=== PATIENT | female | born 2000 ===

== ENCOUNTER 2018-01-16 23:34 | Emergency (ER) | payer MEDICAID ==
[2018-01-16 23:45] VITALS: O2SAT 99
--- NOTE | 2018-01-17 00:59 | ED PDOC ---
HPI: Female Pain Time Seen by Provider: 01/16/18 23:55 Chief Complaint (Nursing): Female Genitourinary Chief Complaint (Provider): Vaginal bleeding History Per: Patient History/Exam Limitations: no limitations Current Symptoms Are (Timing): Still Present Additional History Per: Patient Additional Complaint(s): 17yo female, and currently approximately 17 weeks , states late last week she had an episode of vaginal bleeding. Patient was seen at [place] and was discharged home with diagnosis of threatened . Patient states prior to arrival, she noted a clot and bright red blood, prompting ER visit. She denies any abdominal pain, discharge or urinary symptoms. Patient unable to remember her LMP. PMD: None provided Abnormal Vaginal Bleeding: Yes : 2 Para: 1 Past Medical History Reviewed: Historical Data, Nursing Documentation, Vital Signs Vital Signs: Last Vital Signs Temp 98.0 F 01/16/18 23:40 Pulse 88 01/16/18 23:40 Resp 16 01/16/18 23:40 BP 109/79 01/16/18 23:40 Pulse Ox 99 01/16/18 23:40 - Medical History PMH: No Chronic Diseases - Surgical History Surgical History: No Surg Hx - Family History Family History: States: No Known Family Hx - Home Medications Home Medications: Ambulatory Orders Medication Instructions Recorded Docusate [Colace] 100 mg PO BID #30 cap 07/15/15 Polyethylene Glycol 3350 [Miralax] 17 gm PO DAILY #30 each 07/15/15 Acetaminophen [Acetaminophen Extra 2 tab PO Q6 PRN #24 tablet 12/07/15 Strength] Hydrocortisone 0.5% 0.5 gm TP BID #1 tube 12/07/15 Nitrofurantoin Macrocrystals 100 mg PO BID #14 cap 12/07/15 [Macrobid] - Allergies Allergies/Adverse Reactions: Allergies Allergy/AdvReac Type Severity Reaction Status Date / Time No Known Allergies Allergy Verified 01/16/18 23:40 Review of Systems ROS Statement: Except As Marked, All Systems Reviewed And Found Negative Gastrointestinal: Negative for: Abdominal Pain Genitourinary Female: Positive for: Vaginal Bleeding. Negative for: Dysuria, Hematuria, Vaginal Discharge Physical Exam - Reviewed Nursing Documentation Reviewed: Yes Vital Signs Reviewed: Yes - Physical Exam Appears: Positive for: Non-toxic, No Acute Distress Head Exam: Positive for: ATRAUMATIC, NORMAL INSPECTION, NORMOCEPHALIC Skin: Positive for: Normal Color, Warm, DRY Eye Exam: Positive for: EOMI, Normal appearance, PERRL Neck: Positive for: Normal, Painless ROM Cardiovascular/Chest: Positive for: Regular Rate, Rhythm Respiratory: Positive for: CNT, Normal Breath Sounds Gastrointestinal/Abdominal: Positive for: Normal Exam, Soft, Other (gravid uterus). Negative for: Tenderness Pelvic Exam: Positive for: External Exam Normal, Speculum Exam Normal. Negative for: Active Bleeding, Discharge Back: Positive for: Normal Inspection Extremity: Positive for: Normal ROM Neurologic/Psych: Positive for: Alert, Oriented. Negative for: Motor/Sensory Deficits Comments: RN Yana as routing clerk for pelvic exam. - ECG O2 Sat by Pulse Oximetry: 99 (RA) Pulse Ox Interpretation: Normal Medical Decision Making Medical Decision Making: Assessment: 17yo female, 17 weeks , presents with vaginal bleeding; likely threatened vs. miscarriage Plan: * Labs * US OB 02:53 US report reviewed. Patient reports feeling better, and stable for discharge home. Instructed on strict pelvic rest and to follow up with OBGYN in 2-3 days. Scribe Attestation: Documented by Macarena Liu, acting as a scribe for Hilton Valentin MD. Provider Scribe Attestation: All medical record entries made by the Scribe were at my direction and personally dictated by me. I have reviewed the chart and agree that the record accurately reflects my personal performance of the history, physical exam, medical decision making, and the department course for this patient. I have also personally directed, reviewed, and agree with the discharge instructions and disposition. Disposition - Clinical Impression Clinical Impression: Threatened miscarriage - Disposition [facility] Disposition: Routine/Home Disposition Time: 02:54 Condition: STABLE Instructions: Threatened Miscarriage Forms: [employer] ([place])
[2018-01-17 05:43] VITALS: BP 106/68; PULSE 87; RESP 18; TEMP 98.6
--- NOTE | 2018-01-17 11:13 | US ---
Date of service: 01/17/2018 PROCEDURE: OB Pelvic Ultrasound HISTORY: 17wks preg, VB LMP: Unknown COMPARISON: None available. FINDINGS: UTERUS: Placenta: Posterior, fundal Presentation: Transverse BPD: 3.8 cm compatible with estimated gestational age of 17 weeks, 4 days HC: 13.1 cm compatible with estimated gestational age of 16 weeks, 5 days AC: 10.0 cm compatible with estimated gestational age of 16 weeks, 0 days FL: 2.3 cm compatible with estimated gestational age of 17 weeks, 0 days Heart rate: 157 bpm. age (Ultrasound estimated): 16 weeks, 6 days Irma-gestational hemorrhage: None. Date of delivery (Ultrasound estimated) : 06/28/2018 EFW: 159.6 grams +/-23.9 grams (6 ounces +/-1 ounce) CERVIX: Measures 4.5 cm. Long and closed. No cervical abnormality seen. FREE FLUID: None. OTHER FINDINGS: None. IMPRESSION: Single live intrauterine gestation with average ultrasound age of 16 weeks, 6 days. heart rate 157 beats per minute. Cervix long and closed.
== END 2018-01-17 02:57 | disposition home or self-care (01) ==
LOC: H.ER 23:34
DX: O03.9 Complete or unspecified spontaneous abortion without complication (principal); Z3A.17 17 weeks gestation of pregnancy

== ENCOUNTER 2018-06-26 20:32 | Inpatient (IN) | payer MEDICAID ==
[2018-06-26 21:05] VITALS: BMI 32.1
[2018-06-26] MEDS ORDERED: Fentanyl/Bupivacaine HCl 250 ML EPI ONE (21:22)
[2018-06-26 22:06] LABS: BASO # 0.1 K/uL (0.0-0.2); BASO % 0.5 % (0.0-2.0); EOS # 0.1 K/uL (0.0-0.7); EOS % 0.6 % (0.0-4.0); HEMOGLOBIN 9.9 g/dL (12.0-16.0); LYMPH # 2.1 K/uL (1.0-4.3); MEAN CELL VOLUME 70.1 fl (81.0-99.0); MEAN CORPUSCULAR HEMOGLOBIN 22.7 pg (27.0-31.0); MEAN CORPUSCULAR HGB CONC 32.4 g/dL (33.0-37.0); MEAN PLATELET VOLUME 7.7 fl (7.2-11.7); MONO # 1.2 K/uL (0.0-0.8); MONO % 7.6 % (0.0-10.0); NEUT # 11.8 K/uL (1.8-7.0); NEUT % 77.3 % (50.0-75.0); RBC 4.36 Mil/uL (3.80-5.20); RED CELL DISTRIBUTION WIDTH 16.7 % (11.5-14.5); WHITE BLOOD COUNT 15.2 K/uL (4.8-10.8)
--- NOTE | 2018-06-26 22:25 | OBHP ---
Datetime: 06/26/2018 21:59 IP Adm Impression: Term, intrauterine IP Admit Plan: Admit to unit Admit Comment, IP Provider: 18 y/o @39.5 w/BLANCA 06/28/2018 is c/o srom @ 745pm _ ctx every 5 minut es. She reports +FM _ denies vb. She denies any f/c/n/v/cp or shortness of breath. NO complications d uring this prengancy. OBGYNhx: x 1; denies miscarriages or abortions PMH: denies Allergies: denies Meds: just completed PNV Surghx: denies ROS: all 12 points reviewed and negative unless otherwise mentioned in HPI PE: Gen: grimacing in pain Cardio: s1s2 no murmurs Lungs: cta b/l Abd: gravid, nontender, no rigidity, no guarding Pelvic: 4cm, 70%, -2; clear fluid noted Ext: calves nontender, nonedematous A/P: 18 y/o @39.5, clinically stable w/BLANAC 06/28/2018 c/o srom @ 745pm _ ctx every 5 minutes. -ROM confirmed -Admit to unit -FHR monitoring Patient seen and examined with Dr. Kenneth Palmer, PGY-1 OB Hospitalist Addendum: Pt seen and examined by me. Agree w/ above. 18 yo at 39+5 wks w / SROM for clear fluid at 7:45 pm, in labor. GBS negative. FHT reassuring. (ES) Extremities - PN: Normal Abdomen - PN: Normal Back - PN: Normal Lungs - PN: Normal Heart - PN: Normal General - PN: Normal FHR - Baseline A Provider: 140 Gestation - Est Wks by US: 39.5 IP Hx Assessment: The History has been Reviewed and is Current IP Indication for Induction: Not Applicable IP Chief Complaint: Uterine contractions; Suspected ruptured membranes NICHD Decel Fetus A IP Provider: None Dilatation, Provider: 4 Effacement, Provider: 70 Station, Provider: -2 Genitourinary Exam: Normal Datetime: 06/26/2018 21:10 Membranes, Provider: Ruptured Pool Provider: Positive Vital Signs Provider: Reviewed; Within Normal Limits NICHD Variability Prov Fetus A: Moderate 6-25bpm NICHD Accel Fetus A IP Provider: 10X10 FHR Category Provider Fetus A: Category I
[2018-06-27] MEDS ORDERED: Oxytocin 30 UNIT 30 UNITS/500 ML BAG IV ONE ×3 (00:58→07:05)
[2018-06-27] MEDS ORDERED: OXYTOCIN/0.9 % NS 20 UNIT/1,000 ML BAG IV SCH ×2 (01:00→07:05)
[2018-06-27] MEDS ORDERED: Lactated Ringer's 1,000 ML IV ONE ×3 (01:21→01:22)
[2018-06-27 01:43] VITALS: O2SAT 100
[2018-06-27] MEDS ORDERED: Oxycodone/Acetaminophen 5/325 mg Tab PO PRN ×4 (03:44→07:05)
[2018-06-27] MEDS ORDERED: Benzocaine/Menthol SPRAY TOP PRN ×2 (03:44→07:05)
--- NOTE | 2018-06-27 04:07 | OBDS ---
DELIVERY PERSONNEL Delivery Doctor: Aleksandr Cooper MD Occupational Psychologist[facility] Anesthesiologist: Heladio Wellington MD MATERNAL INFORMATION Delivery Anesthesia: Epidural Medications in Delivery: Pitocin Placenta Cultured: No Maternal Complications: None Provider Comments: 18 year old at 39.6 admitted for PROM. She progressed to normal spontaneous vaginal delivery of live male infact without pitocin augmentation, position ANNALISA over intact perineum with epidural anesthesia. was placed on maternal abdomen and delayed cord clamping was perform ed. No excessive resuscitation required, Apgars 9 _ 9. No meconium or nuchal cord. Spontaneous delive ry of placenta with 3-vessel cord. First degree laceration, repaired. QBL 100cc. Mom and are i n stable condition and will be recovered in L_D. Zandra Pagan MD OB Fellow I was present for this delivery. (ES) LABOR SUMMARY EDC: 06/28/2018 00:00 No. Babies in Womb: 1 Attempted: No Labor Anesthesia: Epidural LABOR INFORMATION Reason for Induction: Not Applicable Oxytocin: N/A Group B Beta Strep: Negative Steroids Given: None MEMBRANES Membranes Rupture Method: Spontaneous Rupture of Membranes: 06/26/2018 19:45 Amniotic Fluid Color: Clear Amniotic Fluid Amount: Moderate Amniotic Fluid Odor: Normal VAGINAL DELIVERY Episiotomy: None Laceration Extension: First Degree Laceration Type: Perineal Laceration Repair: Yes Laceration Repair Note: A 2-0 Vicryl was used to repair the laceration in the usual fashion, hemosta sis was adequate after repair. Sponge Count Correct: Yes Sharps Count Correct: Yes
[2018-06-27] MEDS ORDERED: Multivitamin With Minerals Tab PO SCH (09:00)
[2018-06-27] MEDS: Multivitamin With Minerals Tab PO SCH (09:19)
[2018-06-27] MEDS ORDERED: Simethicone 80 mg Chewtab PO PRN (14:02)
[2018-06-28 06:38] LABS: BASO # 0.1 K/uL (0.0-0.2); BASO % 0.5 % (0.0-2.0); EOS # 0.2 K/uL (0.0-0.7); EOS % 1.3 % (0.0-4.0); HEMOGLOBIN 8.8 g/dL (12.0-16.0); LYMPH # 3.2 K/uL (1.0-4.3); MEAN CELL VOLUME 70.3 fl (81.0-99.0); MEAN CORPUSCULAR HEMOGLOBIN 22.9 pg (27.0-31.0); MEAN CORPUSCULAR HGB CONC 32.5 g/dL (33.0-37.0); MEAN PLATELET VOLUME 7.6 fl (7.2-11.7); MONO # 1.4 K/uL (0.0-0.8); MONO % 8.9 % (0.0-10.0); NEUT # 10.9 K/uL (1.8-7.0); NEUT % 69.3 % (50.0-75.0); NRBC % 0.1 % (0.0-0.0); RBC 3.84 Mil/uL (3.80-5.20); RED CELL DISTRIBUTION WIDTH 17.3 % (11.5-14.5); WHITE BLOOD COUNT 15.8 K/uL (4.8-10.8)
--- NOTE | 2018-06-28 07:56 | OBPPN ---
Datetime: 06/28/2018 06:20 PP Pain Prov: Within normal limits PP Nausea Prov: Denies PP Flatus Prov: No PP BM Prov: No PP Heart Prov: Normal PP Lungs Prov: Normal PP Abdomen/Uterus Prov: Normal PP Lochia Prov: Normal PP Extremities Prov: Normal PP Impression Prov: Normal progression PP Plan Prov: Continue present management PP Progress Note Prov: 18 y/o PPD1 sp was seen and examined this morning. Patient is breas tfeeding _ tolerating PO regular diet w/o n or v. Pt is urinating _ ambulating w/o difficulty. -Flatu s, -BM. Denies f/c/cp/sob, dysuria or lightheadedness. PE: Gen: awake, laying in bed breathing comfortably with baby at bedside Cardio: s1s2, no murmurs Lungs: cta b/l, no wheeze Abd: soft, nontender, BS +, fundus firm _ @ umbilicus, no rigidity or guarding Ext: calves nontender A/P: 18 y/o , clinically stable, PPD1 sp -Continue to encourage -Continue to encourage ambulation -Continue current pain med regimen -Ant dc 06/29/2018 Case discussed with attending -Anahi Palmer, PGY-1 OB Hospitalist Addendum: Pt seen and examined. Agree w/ above. PPD 1 s/p , doingb well, breas t and bottle feeding. Continue currentn management. (ES) IP PP Procedures: None Vital Signs Provider PP: Reviewed; Within Normal Limits
[2018-06-28] MEDS: Multivitamin With Minerals Tab PO SCH (09:10)
[2018-06-29] MEDS: Multivitamin With Minerals Tab PO SCH (08:04)
--- NOTE | 2018-06-29 11:17 | OBDCSUM ---
Datetime: 06/29/2018 06:11 Discharged to, Provider: Home Follow up at, Provider: Your doctor Disch Instr Activity: May be up to bathroom; May be up for meals Disch Instr Diet: Regular Discharge Instructions, Provider: Routine instructions given Discharge Diagnosis, Provider: Term Delivered Discharge Time: 06/29/2018 11:15 Follow up in weeks, Provider: 6 weeks Disch Referrals: None Contraception discussed, Prov: Yes Disch Activity Restrictions: No lifting; No driving; Minimize walking; Minimize stair-climbing; No s exual activity; Nothing in vagina - [place], tampons, douche Discharge Comment, Provider: -Continue to breastfeed. -Continue to walk around as much as you are able to tolerate. If you develop increased bleeding please go to Emergency Department. -No lifting, exercise _ nothing in the vagina (no tampons, douche or sex). Contraception after Delivery: IUD
--- NOTE | 2018-06-29 11:17 | OBPPN ---
Datetime: 06/29/2018 06:12 PP Pain Prov: Within normal limits PP Nausea Prov: Denies PP Flatus Prov: No PP BM Prov: No PP Heart Prov: Normal PP Lungs Prov: Normal PP Abdomen/Uterus Prov: Normal PP Lochia Prov: Normal PP Extremities Prov: Normal PP Impression Prov: Normal progression PP Plan Prov: Continue present management; Discharge PP Progress Note Prov: 18 y/o PPD2 sp was examined this morning. Patient is _ tolerating PO regular diet w/o n or v. Pt is urinating _ ambulating w/o difficulty. -Flatus, -BM. Denies f/c/cp/sob, dysuria or lightheadedness. PE: Gen: asleep Cardio: s1s2, no murmurs Lungs: cta b/l, no wheeze Abd: soft, nontender, BS +, fundus firm _ @ umbilicus, no rigidity or guarding Ext: calves nontender A/P: 18 y/o , clinically stable, PPD2 sp -Continue to encourage -Continue to encourage ambulation -Continue current pain med regimen - dc 06/29/2018 today Case discussed with attending -Anahi Palmer, PGY-[address] Kidd: I have evaluated the patient independently and I agree with the above IP PP Procedures: None Vital Signs Provider PP: Reviewed; Within Normal Limits
[2018-06-29 18:51] VITALS: BP 125/76; PULSE 84; RESP 20; TEMP 98.1
== END 2018-06-29 12:45 | disposition home or self-care (01) | DRG 372 ==
LOC: H.EROB2 20:32 → H.L&D 21:04 → H.OB/GYN 06-27 06:15
PROVIDERS: ADMIT Obstetrics & Gynecology; ATTEND Obstetrics & Gynecology
PROC: 4A1HXCZ Monitoring of Products of Conception, Cardiac Rate, External Approach (ICD-10-PCS; 2018-06-26)
PROC: 10E0XZZ Delivery of Products of Conception, External Approach (ICD-10-PCS; principal; 2018-06-27)
PROC: 0HQ9XZZ Repair Perineum Skin, External Approach (ICD-10-PCS; 2018-06-27)
DX: O42.02 Full-term premature rupture of membranes, onset of labor within 24 hours of rupture (principal); O70.0 First degree perineal laceration during delivery; Z37.0 Single live birth; Z3A.39 39 weeks gestation of pregnancy